=== PATIENT | male | born 1985 | race Caucasian/White ===

== ENCOUNTER 2016-12-11 19:41 | Emergency (ER) | payer OTHER ==
[~2016-12-11] VITALS: Ht 170.2 cm; Wt 72.6 kg
[2016-12-11 20:06] VITALS: BP 152/82
[2016-12-11 21:00] VITALS: BP 145/76
[2016-12-11] MEDS ORDERED: BENADRYL25 MG ORAL (21:19)
[2016-12-11] MEDS ORDERED: PREDNISONE20 MG ORAL (21:19)
--- NOTE | 2016-12-11 23:34 | Emergency Room Report ---
History of Present Illness General Chief Complaint: Allergic Reaction Source: Patient Present Illness HPI The patient is a 31-year-old male presenting for possible allergic reaction. He states that he developed total body itching yesterday for no known reason. He also noticed elevations of his skin on the arms, chest, back, and legs. He took Benadryl yesterday and today which did help. He denies any pain. He denies any known cause for this reaction. 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 He denies any other known allergy. He denies any other symptoms including shortness of breath, chest pain, headache , dizziness, blurred vision Allergies: Coded Allergies: SULFA (SULFONAMIDE ANTIBIOTICS) (Verified Allergy, Unknown, 12/11/16) Patient History Past Medical History: see triage record Pertinent Family History: none Reviewed Nursing Documentation: PMH: Agreed, PSxH: Agreed Review of Systems All Other Systems: negative except mentioned in HPI Physical Exam Vital Signs Date Time Temp Pulse Resp B/P (MAP) Pulse Ox O2 Delivery O2 Flow Rate FiO2 12/11/16 19:48 98.1 93 18 152/82 98 Room Air Sp02 EP Interpretation: reviewed, normal General Appearance: no apparent distress, alert, GCS 15, non-toxic Head: normocephalic, atraumatic Eyes: bilateral eye normal inspection, bilateral eye PERRL ENT: hearing grossly normal, normal pharynx, no angioedema, normal voice Neck: full range of motion, supple/symm/no masses Respiratory: chest non-tender, lungs clear, normal breath sounds, speaking full sentences Cardiovascular #1: regular rate, rhythm, no edema Genitourinary: normal inspection, no CVA tenderness Musculoskeletal: back normal, gait/station normal, normal range of motion, non- tender Neurologic: alert, oriented x3, responsive, motor strength/tone normal, sensory intact, speech normal Psychiatric: judgement/insight normal, memory normal, mood/affect normal, no suicidal/homicidal ideation Skin: rash - Multiple areas of erythema with edema to arms, chest, back, and legs. Non tender. Lymphatic: no adenopathy Medical Decision Making PA Attestation Dr. Zamora is my supervising physician. Patient management was discussed with my supervising physician Diagnostic Impression: Primary Impression: Allergic reaction Qualified Codes: T78.40XA - Allergy, unspecified, initial encounter ER Course The patient is a 31-year-old male presenting for possible allergic reaction. Differential diagnosis considered but not limited to: Allergic reaction, anaphylaxis, cellulitis, insect bites, among others Physical exam consistent with generalized allergic reaction. No angioedema. No respiratory distress. The patient is given prednisone in the emergency department and will be given a prescription for prednisone and Benadryl. He is advised to followup with primary doctor and obtain allergy testing. ER precautions are given Last Vital Signs Date Time Temp Pulse Resp B/P (MAP) Pulse Ox O2 Delivery O2 Flow Rate FiO2 12/11/16 20:06 98.1 18 152/82 98 Room Air 12/11/16 19:48 93 Status: improved Disposition: HOME, SELF-CARE Condition: Improved Scripts Diphenhydramine Hcl* (BENADRYL*) 25 Mg Capsule 25 MG ORAL Q6H Y for Itching, #30 CAP Prov: JUAN FRANCISCO KESSLER.A. 12/11/16 Prednisone* (PREDNISONE*) 20 Mg Tablet 40 MG ORAL DAILY, #10 TAB Prov: JUAN FRANCISCO KESSLER.A. 12/11/16 Referrals: [facility],REFERR[facility] (PCP) Patient Instructions: Pruritus Additional Instructions: I discussed my findings with the patient. All questions and concerns have been answered. Treatment and medication compliance have been addressed. I advised the patient that they need to follow up with PMD in 3-5 days. Return to ED if symptoms worsen, new symptoms arise, or if needed for any reason. Patient verbalized understanding of discharge instructions. JUAN FRANCISCO KESSLER Dec 11, 2016 23:34
[2016-12-11 23:48] VITALS: BP 152/82
== END 2016-12-11 21:45 | disposition home or self-care (01) ==
LOC: EMR 21:32
DX: L05.01 Pilonidal cyst with abscess (principal); Z88.1 Allergy status to other antibiotic agents
CPT/HCPCS: 99284